=== PATIENT | female | born 1955 | race Hispanic/Latino ===

== ENCOUNTER 2016-09-17 05:56 | Day surgery (SDC) | payer OTHER ==
[2016-09-17] MEDS ORDERED: WATER FOR IRRIG STERILE ONE (07:18)
[2016-09-17] MEDS ORDERED: WATER FOR IRRIG STERILE IR ONE ×2 (07:18→08:15)
[2016-09-17] MEDS ORDERED: DIPRIVAN 10 MG/ML IV ONE ×2 (07:21)
[2016-09-17] MEDS ORDERED: NACL 0.9% 1000 ML 1,000 ML IV SCH (08:00)
--- NOTE | 2016-09-17 08:23 | Short Stay Summary ---
Short Stay Documentation - Allergies and Medications Current Medications: Allergies codeine Allergy (Intermediate, Verified 09/17/16 07:22) Unknown Penicillins Allergy (Intermediate, Verified 09/17/16 07:22) Unknown Home Medications Medication Instructions Recorded Confirmed Last Taken Type Adult Low Dose Aspirin EC 81 mg PO DAILY 09/14/16 09/14/16 Unknown History Ibuprofen 1 tab PO DAILY 09/14/16 09/14/16 Unknown History Losartan 1 tab PO DAILY 09/14/16 09/14/16 Unknown History Pravastatin Sodium 1 tab PO DAILY 09/14/16 09/14/16 Unknown History Triamterene/Hydrochlorothiazid 35.5 mg PO DAILY 09/14/16 09/14/16 Unknown History Active Medications Sodium Chloride (Nacl 0.9% 1000 Ml) 1,000 mls @ 50 mls/hr IV DIRECT TI - Brief post op/procedure progress note Date of procedure: 09/17/16 Pre-op diagnosis: Colon cancer screening Post-op diagnosis: same (1. Internal hemorrhoids) Procedure: Colonoscopy Anesthesia: MAC Findings: as above Surgeon: ALANA MIRANDA Estimated blood loss: none Pathology: none Condition: stable - Disposition Condition at discharge: Stable Disposition: DC-01 TO HOME OR SELFCARE Short Stay Discharge Plan Activity: no restrictions Weight Bearing Status: Full Weight Bearing Diet: regular
--- NOTE | 2016-09-17 08:27 | Anesthesia Day of Surgery ---
Anesthesia Day of Surgery - Day of Surgery Patient Examined: Yes Patient H&P Reviewed: Yes Patient is NPO: Yes
--- NOTE | 2016-09-17 08:27 | Anesthesia Consultation ---
Anesthesia Consult and Med Hx Date of service: 09/17/16 - Airway Intubation Access Assessment: Possibly Difficult - Pulmonary Exam CTA: Yes - Cardiac Exam Cardiac Exam: RRR - Pre-Operative Health Status ASA Pre-Surgery Classification: ASA3 Proposed Anesthetic Plan: MAC - Cardiovascular System Hx Hypertension: Yes - Other Systems Hx Obesity: Yes (morbid)
--- NOTE | 2016-09-17 08:28 | Post Anesthesia Evaluation ---
- Post Anesthesia Evaluation Patient Participated: Yes Airway Patent: Yes Stable Respiratory Function: Yes Temp > 96.8F: Yes Pain Manageable: Yes Adequeate Hydration: Yes Anesthesia Complications: No Block Receding Appropriately: Not Applicable
[2016-09-17 08:34] VITALS: BP 111/76
== END 2016-09-17 05:57 | disposition home or self-care (01) ==
LOC: GIO 05:56
PROVIDERS: ATTEND Internal Medicine Gastroenterology
DX: Z12.11 Encounter for screening for malignant neoplasm of colon (principal); K64.0 First degree hemorrhoids; I10 Essential (primary) hypertension; E78.00 Pure hypercholesterolemia, unspecified; E66.01 Morbid (severe) obesity due to excess calories; Z68.43 Body mass index [BMI] 50.0-59.9, adult; Z88.0 Allergy status to penicillin; Z88.5 Allergy status to narcotic agent; Z79.899 Other long term (current) drug therapy; Z79.82 Long term (current) use of aspirin; Z90.49 Acquired absence of other specified parts of digestive tract; Z98.51 Tubal ligation status; Z98.890 Other specified postprocedural states
CPT/HCPCS: 45378; J2704; J7030